=== PATIENT | female | born 2000 | race Caucasian/White ===

== ENCOUNTER 2022-04-03 09:20 | Emergency (ER) | payer MEDICAID ==
[~2022-04-03] VITALS: Ht 167.6 cm; Wt 111.4 kg
[2022-04-03] MEDS ORDERED: dexamethasone sod phosphate 10mg/ml inj IV STA (09:32)
[2022-04-03] MEDS ORDERED: metoclopramide 5 mg/ml inj IV ONE (09:35)
[2022-04-03] MEDS ORDERED: LORazepam 2 mg/ml vial IV ONE (09:35)
[2022-04-03] MEDS ORDERED: normal saline 1000ML IV soln IVB ONE (09:35)
[2022-04-03] MEDS ORDERED: ketorolac trometh. 30mg/ml inj. IV ONE (10:00)
[2022-04-03 10:21] VITALS: BP 139/78
--- NOTE | 2022-04-03 10:56 | NUR ---
Anna mcgill in [facility] - 04/03/22 at 1125 by JOSEPH PT'S GENERAL AND PAIN ASSESSMENT REVIEWED BY MUMTAZ, RNC; CS
--- NOTE | 2022-04-03 10:56 | NUR ---
BUILDING CUSTODIAN'S GENERAL AND PAIN ASSESSMENT REVIEWED, MISSING PAIN ASSESSMENT ADDRESS AND COMPLETED BY BUILDING CUSTODIAN. MISSING MUSCLE STRENGTH, CARDIAC COMPLAINTS AND PARTS OF RESP ASSESSMEN WAS ADDRESSED AND CORRECTED BY BUILDING CUSTODIAN. GENERAL/PAIN ASSESSMENT AGREEDED WITH BY Ari MONDRAGON, RNC; CS.
== END 2022-04-03 10:57 | disposition home or self-care (01) ==
LOC: ER 09:21
DX: R51.9 Headache, unspecified (principal); R47.81 Slurred speech; Z72.0 Tobacco use; Z72.89 Other problems related to lifestyle
CPT/HCPCS: 70450; 96361; 96374; 96375; 99284; J1100; J1885; J2060; J2765; J7030